=== PATIENT | female | born 1995 | race Two or more races ===

== ENCOUNTER 2020-02-18 17:18 | Emergency (ER) | payer MEDICAID ==
[~2020-02-18] VITALS: Ht 157.5 cm; Wt 56.7 kg
[2020-02-18] MEDS: HYDROcodone-ACET 5/325MG TAB PO ONE (19:04)
[2020-02-18] MEDS: ONDANSETRON ODT 4 MG TAB PO ONE (19:04)
[2020-02-18 20:47] VITALS: BP 115/69
== END 2020-02-18 20:59 | disposition home or self-care (01) ==
LOC: ER 17:21
DX: S52.602A Unspecified fracture of lower end of left ulna, initial encounter for closed fracture (principal); S52.202A Unspecified fracture of shaft of left ulna, initial encounter for closed fracture; W01.0XXA Fall on same level from slipping, tripping and stumbling without subsequent striking against object, initial encounter; Y93.89 Activity, other specified; Y92.89 Other specified places as the place of occurrence of the external cause; Y99.8 Other external cause status
CPT/HCPCS: 29125; 73090; 73110; 73130; 99284; Q0162

== ENCOUNTER 2020-09-05 11:59 | Emergency (ER) | payer MEDICAID ==
[~2020-09-05] VITALS: Ht 157.5 cm; Wt 59.0 kg
[2020-09-05 18:58] VITALS: BP 132/72
== END 2020-09-05 12:24 | disposition left against medical advice (07) ==
LOC: ER 11:59
DX: R10.11 Right upper quadrant pain (principal); R11.2 Nausea with vomiting, unspecified